=== PATIENT | male | born 1990 | race Two or more races ===

== ENCOUNTER 2023-05-01 10:04 | Outpatient (AMB) | payer OTHER, SELFPAY ==
--- NOTE | 2023-05-01 10:08 | MHC.PC.OV ---
Vital Signs 05/01/23 10:16 Height 5 ft 8 in Weight 148 lb BMI 22.5 BP 100/60 Blood Pressure Location Rt brachial Position Sitting Pulse 79 Pulse Source Pulse Oximeter Pulse Oximetry (%) 100 Oxygen Delivery Method Room Air Intake Visit Reasons: [employer]/req PE Intake Note: Pt is here today as a New Patient to [facility] care/ PE Allergies No Known Allergies Allergy (Verified 05/01/23 10:17) Tobacco use date assessed: 05/01/23 Dental Screening Dental Screen Date: 05/01/23 Did you have a dental visit in the last 12 months?: Yes Did you have a dental problem in the last 6 months where you did not have access to dental care?: Yes Was dental information given to patient?: Patient has dentist HPI HPI Comments History of Present Illness Details Patient is a 32-year-old male in today to establish care and have his annual physical exam. He has a chief complaint of increased anxiety since his father 4 years prior. He also states he would like an evaluation for ADHD. He has a past medical history significant for childhood asthma, and anxiety. He has no surgical history. Patient will meet with in office community mental health liaison. [facility], LAT[facility] Family History (Updated 05/01/23 @ 10:30 by JULIANE Krishnamurthy) Father Substance use disorder Mental health disorder ADHD Type 2 diabetes mellitus Social History Housing: House Patient Tobacco Use Status: Never used Tobacco e-Cigarette/Vaping Use: Currently Using service: No Current occupational status: employed Cognitive needs: No Hearing needs: No Vision needs: Yes Questionnaire PHQ-9 Over the last 2 weeks, how often have you been bothered by any of the following problems? 1. Little interest or pleasure in doing things: several days 2. Feeling down, depressed, or hopeless: several days 3. Trouble falling or staying asleep, or sleeping too much: not at all 4. Feeling tired or having little energy: several days 5. Poor appetite or overeating: several days 6. Feeling bad about yourself - or that you are a failure or have let yourself or your family down: several days 7. Trouble concentrating on things, such as reading the newspaper or watching television: nearly every day 8. Moving or speaking so slowly that other people could have noticed. Or the opposite - being so fidgety or restless that you have been moving around a lot more than usual: not at all 9. Thoughts that you would be better off or of hurting yourself in some way: several days Total score: 9 Source: Developed by Drs. Fredrick Tavera, Laurel Groves, Fidencio Martinez and colleagues, with an educational femi from [employer]. Thrive Questionnaire Date Thrive assessed: 05/01/23 I am a: Patient What is your living situation today?: I have a steady place to live Within the past 12 months, did the food you bought not last and you didn't have the money to get more?: Never true Within the past 12 months, did you worry whether your food would run out before you got money to buy more?: Never true Do you have trouble paying for medicines?: No Do you have trouble getting transportation to medical appointments?: No Do you have trouble paying your heating and electricity bill?: No Do you have trouble taking care of your child, family member or friend?: No Do you have trouble with day-to-day activities such as bathing, preparing meals, shopping, managing finances, etc.?: No Are you currently unemployed and looking for a job?: No Are you interested in more education?: No AUDIT C Alcohol Use Questionnaire (AUDIT-C) 1. How often do you have a drink containing alcohol?: Monthly or less 2. How many drinks containing alcohol do you have on a typical day when you are drinking?: 1 or 2 3. How often do you have six or more drinks on one occasion?: Never Total Score: 1 WILLIAM-7 AMB Questionnaire WILLIAM-7 Date WILLIAM - 7 assessed: 05/01/23 Source: Developed by Drs. Fredrick Tavera, Laurel Groves, Fidencio Martinez and colleagues, with an educational femi from [employer]. WILLIAM-7 Assessment Billing WILLIAM-7 Assessment Tool: pt declined-do not bill Review of Systems Const Details: Constitutional : No Weight loss, No Fever, No Chills, No Fatigue, No Malaise ENT/Mouth : No sore throat, No Rhinorrhea, No hearing difficulties. Eyes: No Eye Pain, No Swelling, No Redness Cardiovascular : No Chest Pain, No SOB, No Dyspnea on Exertion, No Orthopnea, No Edema, No Palpitations Respiratory : No Cough, No Sputum, No Wheezing Gastrointestinal : No Nausea, No Vomiting, No Diarrhea, No Constipation, No abdominal Pain, No Hematochezia, No Melena Genitourinary : No Dysuria, No Urinary Frequency, No Hematuria, Musculoskeletal : No joint pain, No Myalgias, No Joint Swelling Skin : No Skin Lesions, No rash Neuro : No Weakness, No Numbness, No Dizziness, No Headache Psych : Admits increased Anxiety/Panic, No Depression Heme/Lymph: No Bruising, No Bleeding,No Lymphadenopathy Endocrine : No Polyuria, No Polydipsia All other systems reviewed and are negative All systems reviewed & are unremarkable except as noted in HPI and below Physical exam (Primary Care) Vital Signs: Last Vital Signs Pulse 79 05/01/23 10:16 BP 100/60 05/01/23 10:16 Pulse Ox 100 05/01/23 10:16 Oxygen Delivery Method Room Air 05/01/23 10:16 Care Plan Goal for BP management: Patient's vital signs are stable BMI result Body Mass Index 22.5 Tobacco/Smoking Status: Tobacco use Status Tobacco use date assessed 05/01/23 05/01/23 10:08 Patient Tobacco Use Status Never used Tobacco 05/01/23 10:20 e-Cigarette/Vaping Use Currently Using 05/01/23 10:20 Const General: cooperative and no acute distress Orientation/consciousness: patient oriented x3 Limitations: no limitations HENMT Head: Yes normal to inspection and Yes normocephalic Ears: TM's normal bilaterally General nose exam: Normal external nose present and Normal septum present Face and sinus: Yes normal facial exam Mouth: Normal oral and palatal mucosa present Eyes Conjunctivae: conjunctivae normal Sclerae: sclerae normal Pupils: Equal, round and reactive pupils present EOM: EOMs intact bilaterally Direct Ophthalmoscopy: normal light reflex and no photophobia Neck Neck: Yes normal visual inspection, Yes full ROM and Yes no lymphadenopathy Thyroid: Thyroid normal Chest Chest palpation & inspection: normal inspection of the chest Resp Auscultation: clear to auscultation bilaterally Cardio Rate: regular rate Rhythm: regular rhythm Heart sounds: S1 normal heart sound present and S2 normal heart sound present Peripheral pulses: Peripheral pulses 2+ throughout GI Inspection: Yes normal to inspection Auscultation: normal bowel sounds General: Yes no CVA tenderness Back/Spine/Pelvis Back: no CVA tenderness Neuro General: patient oriented x3 and CN's II-XI intact bilaterally Cranial nerves: Yes Equal, round and reactive pupils present Motor exam (neuro): 5/5 motor strength present throughout Deep tendon reflexes (DTR's): Right patellar reflex intensity grade: 2+ and Left patellar reflex intensity grade: 2+ Extrem General: Yes normal to inspection and Yes full ROM Psych Affect: normal affect Attitude: cooperative Thought process: Normal thought process present Thought content: Normal thought content present Insight: Good insight present (Psych) Judgement: Good judgement present (Psych) Office Procedures Flu Questionnaire Does the patient have a severe egg allergy?: No Does the patient have severe life threatening allergies?: No Does the patient have a fever or illness today?: No Has the patient ever had Guillain-[place] Syndrome?: No Has the patient ever had any past reaction to a flu shot?: No Immunizations flu vacc [id number] 6mos up(PF) 60 mcg(15 mcgx4)/0.5 mL IM syringe Performing Provider: JULIANE Krishnamurthy Performing Location: [facility] Administered by: Lawanda Palmer CMA on 05/01/23 11:09 Dose Route Admin Location Dispensed Lot Number Expiration Date NDC Mangle Roller 0.5 mL IM Right Deltoid 0.5 mL [id number] 11/23/23 [id number] [employer] VIS Given Date VIS Provided VIS Publication Date 05/01/23 Single Vaccine 20 Eligibility Eligibility Date Funding Source Not [facility] Eligible 05/01/23 Private Results Reviewed Results Reviewed: Patient will get lab draw today. Assessment and Plan Assessment & Plan (1) Encounter for routine adult physical exam with abnormal findings: Comment: Will draw CMP, CBC, UA, lipid profile, vitamin-D, TSH, T4. Code(s): Z00.01 - Encounter for general adult medical examination with abnormal findings (2) Anxiety: Comment: Patient has been started on sertraline at today's visit. He has been educated to take the medication as prescribed. He will have a in office follow-up in 4 weeks. Patient is agreeable to this plan. Code(s): F41.9 - Anxiety disorder, unspecified (3) Attention and concentration deficit: Code(s): R41.840 - Attention and concentration deficit Plan: Patient meeting with in office community specialist to assist with process for evaluation of ADHD. Patient understands and is agreeable with this plan Plan Patient will have follow-up in 4 weeks to evaluate new medication and labs. Orders: Orders Comprehensive Met. Panel Today Z00.01 - Encounter for general adult medical examination with abnormal findings Lipid Panel Today Z00.01 - Encounter for general adult medical examination with abnormal findings Complete Blood Count Auto Diff Today Z00.01 - Encounter for general adult medical examination with abnormal findings TSH reflex Free T4 Today Z00.01 - Encounter for general adult medical examination with abnormal findings UA CC w/rflx Micro + Cult Today Z00.01 - Encounter for general adult medical examination with abnormal findings Vitamin D 25-OH (D2 and D3) Today Z00.01 - Encounter for general adult medical examination with abnormal findings Influenza [id number] Immunization Today Z23 - Encounter for immunization Medications: New sertraline Take half tablet for the first four days. Then 1 tablet daily. 50 mg PO DAILY 30 tabs 0RF Coding Level of Care Code New Pt Level 4 (07192) Diagnoses Encounter for routine adult physical exam with abnormal findings Z00.01 Anxiety F41.9 Attention and concentration deficit R41.840 Time Spent (min) 30
[2023-05-01 10:16] VITALS: BP 100/60; PULSE 79; O2SAT 100; BMI 22.5
== END 2023-05-01 11:15 | disposition home or self-care (01) ==
PROVIDERS: PCP Nurse Practitioner Family; Visit Provider Nurse Practitioner Primary Care
DX: Z23 Encounter for immunization (principal)
CPT/HCPCS: 90471; 90686; 99385

== ENCOUNTER 2023-05-01 11:15 | Outpatient (REF) | payer OTHER, SELFPAY ==
[2023-05-01 13:20] LABS: Appearance Urine Clear; Color Urine Dark Yellow; Glucose Urine UA Negative (Negative); Leukocyte Esterase Urine Trace (Negative); Nitrite Urine Negative (Negative); Specific Gravity - Urine >= 1.030 (1.005-1.025); UMIC TRIGGER UACC YES; Urine Blood Negative (Negative); Urine Ketones 15 mg/dL (Negative); Urine Protein 30 (1+) mg/dL (Neg-Trace)
[2023-05-01 13:21] LABS: MANUAL DIFF FLAG NO
[2023-05-01 13:28] LABS: Bacteria Urine None Seen (None Seen); Hyaline Casts Urine 0-2 /LPF (0-2); RBC Urine 0-2 /HPF (0-2); Squamous Epithelial Cell Urine 0-2 /HPF (0-2); WBC Urine 0-5 /HPF (0-5)
[2023-05-01 13:29] LABS: Eosinophils Absolute Auto 0.1 X10*3/uL (0.0-0.4); Eosinophils Percent Auto 2.4 % (0-4); Hematocrit 44.3 % (42.0-52.0); Hemoglobin 15.4 g/dl (14.0-18.0); Imm Gran Abs Auto 0.01 X10*3/uL (0.00-0.03); Imm Gran Pct Auto 0.2 % (0.0-0.4); Lymphocytes Absolute Auto 1.2 X10*3/uL (1.2-4.9); Lymphocytes Percent Auto 28.1 % (20-40); Mean Corpuscular HGB Conc 34.8 g/dl (31.0-36.0); Mean Corpuscular Hemoglobin 31.3 pg (27.0-33.0); Mean Platelet Volume 11.7 fL (9.4-12.4); Monocytes Absolute Auto 0.4 X10*3/uL (0.1-1.2); Monocytes Percent Auto 9.4 % (2-11); Neutrophils Absolute Auto 2.4 x10*3/uL (2.0-8.3); Neutrophils Percent Auto 58.9 % (45-73); Platelet Count 281 X10*3/uL (160-400); Red Blood Count 4.92 X10*6/uL (4.60-5.80); Red Cell Distribution Width 11.9 % (11.0-16.0); White Blood Count 4.1 X10*3/uL (4.8-10.8)
[2023-05-01 13:50] LABS: Alanine Aminotransferase 21 U/L (0-40); Albumin Level 4.7 g/dL (3.5-5.0); Anion Gap 12 (12-20); Aspartate Amino Transferase 24 U/L (5-37); Bilirubin Total 1.3 mg/dL (0.0-1.0); Blood Urea Nitrogen 12 mg/dL (9-16); Carbon Dioxide 31 mmol/L (22-29); Chloride 104 mmol/L (96-108); Cholesterol 175 mg/dL (<200); Estimated Glomerular Filt Rate > 60; Glucose Random 96 mg/dL (60-115); HDL Cholesterol 53 mg/dL (>40); Potassium 3.9 mmol/L (3.3-5.1); Sodium 143 mmol/L (135-145); Total Protein 7.8 g/dL (6.5-8.0); Triglycerides 56 mg/dL (<150)
[2023-05-01 13:51] LABS: Alkaline Phosphatase 94 U/L (39-117); LDL Cholesterol Calculated 111 mg/dL (<100)
[2023-05-01 14:08] LABS: TSH reflex Free T4 0.89 uIU/mL (0.32-4.0)
[2023-05-06 18:35] LABS: Vitamin D 25-OH, D2 <4 ng/mL; Vitamin D 25-OH, D3 26 ng/mL; Vitamin D 25-OH, Total 26 ng/mL (30-100)
== END 2023-05-01 11:16 | disposition home or self-care (01) ==
LOC: HO.HMGCLDS 11:15
PROVIDERS: PCP Nurse Practitioner Primary Care; Visit Provider Nurse Practitioner Primary Care
DX: Z00.01 Encounter for general adult medical examination with abnormal findings (principal)
CPT/HCPCS: 36415; 80053; 80061; 81001; 82306; 84443; 85025

== ENCOUNTER 2023-06-06 10:47 | Outpatient (AMB) | payer SELFPAY ==
[2023-06-06 10:49] VITALS: BP 110/70; PULSE 101; O2SAT 98; BMI 22.7
--- NOTE | 2023-06-06 10:49 | A.OFFPC_ITS ---
Vital Signs 06/06/23 10:49 Height 5 ft 8 in Weight 149 lb BMI 22.7 BP 110/70 Blood Pressure Location Rt brachial Position Sitting Pulse 101 H Pulse Source Pulse Oximeter Pulse Oximetry (%) 98 Intake Visit Reasons: one month fu Intake Note: pt is here for one month follow up regarding new medication Bpo Specialist Required: No Accompanied by: Self / Same As Patient Allergies No Known Allergies Allergy (Verified 06/06/23 10:49) Tobacco use date assessed: 06/06/23 Dental Screening Dental Screen Date: 06/06/23 Did you have a dental visit in the last 12 months?: Yes Did you have a dental problem in the last 6 months where you did not have access to dental care?: No Was dental information given to patient?: Patient has dentist HPI HPI Comments History of Present Illness Details Patient is a 32-year-old male here for a follow-up. He is here to meet with community health program coordinator for services in regard to ADHD evaluation. He is also here for evaluation of sertraline which was started 4 weeks prior. Patient states that he has not yet noticed effects of the medication, but understands that it usually takes 6-8 weeks for the medication to take effect. He states that he is still having anxiety with some days being worse than others. Sometimes this affects his ability to get sleep. Patient denies SI/HI. Patient also has a complaint of left ear pain, x7 days. Denies any trauma to the area. Denies auditory changes. Denies fever, numbness, chest pain, shortness a breath, nausea, vomiting, diarrhea. Patient states that it feels like he has an ear infection. 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 Denies any trauma to the area. The pain increases or decreases based on his activity and what hes doing at work. Denies any numbness or tingling, denies headache, chest pain, shortness a breath. PFSH Family History Father Substance use disorder Mental health disorder ADHD Type 2 diabetes mellitus Social History Housing: House Patient Tobacco Use Status: Never used Tobacco e-Cigarette/Vaping Use: Currently Using service: No Current occupational status: employed Cognitive needs: No Hearing needs: No Vision needs: Yes Questionnaire PHQ-9 Over the last 2 weeks, how often have you been bothered by any of the following problems? 1. Little interest or pleasure in doing things: several days 2. Feeling down, depressed, or hopeless: several days 3. Trouble falling or staying asleep, or sleeping too much: not at all 4. Feeling tired or having little energy: several days 5. Poor appetite or overeating: not at all 6. Feeling bad about yourself - or that you are a failure or have let yourself or your family down: several days 7. Trouble concentrating on things, such as reading the newspaper or watching television: nearly every day 8. Moving or speaking so slowly that other people could have noticed. Or the opposite - being so fidgety or restless that you have been moving around a lot more than usual: not at all 9. Thoughts that you would be better off or of hurting yourself in some way: not at all Total score: 7 Depression Screening Interpretation: Negative Depression Screening Done: Yes 72638 - PHQ-9 Billing: Yes Source: Developed by Drs. Fredrick Tavera, Laurel Groves, Fidencio Martinez and colleagues, with an educational efmi from [employer]. Thrive Questionnaire Date Thrive assessed: 06/06/23 I am a: Patient What is your living situation today?: I have a steady place to live Within the past 12 months, did the food you bought not last and you didn't have the money to get more?: Never true Within the past 12 months, did you worry whether your food would run out before you got money to buy more?: Never true Do you have trouble paying for medicines?: No Do you have trouble getting transportation to medical appointments?: No Do you have trouble paying your heating and electricity bill?: No Do you have trouble taking care of your child, family member or friend?: No Do you have trouble with day-to-day activities such as bathing, preparing meals, shopping, managing finances, etc.?: No Are you currently unemployed and looking for a job?: No Are you interested in more education?: No Please select the resources that you would like help with: None Currently or been in a relationship where the following occur: no concerns reported WILLIAM-7 AMB Questionnaire WILLIAM-7 Date WILLIAM - 7 assessed: 06/06/23 Feeling nervous, anxious, or on edge: 3 = Nearly every day Not being able to stop or control worryin = Several days Worrying too much about different things: 1 = Several days Trouble relaxin = Several days Being so restless that it is hard to sit still: 3 = Nearly every day Becoming easily annoyed or irritable: 3 = Nearly every day Feeling afraid as if something awful might happen: 0 = Not at all Total WILLIAM-7 score (0-4 normal; 5-9 mild; 10-14 moderate; 15-21 severe): 12 Source: Developed by Drs. Fredrick Tavera, Laurel Groves, Fidencio Martinez and colleagues, with an educational femi from [employer]. WILLIAM-7 Assessment Billing WILLIAM-7 Assessment Tool: WILLIAM-7 Assessment 42920 Review of Systems Const Details: Constitutional : No Weight loss, No Fever, No Chills, No Fatigue, No Malaise ENT/Mouth : No sore throat, Admits left ear pain. Eyes: No Eye Pain, No Swelling, No Redness Cardiovascular : No Chest Pain, No SOB, No Dyspnea on Exertion, No Orthopnea, No Edema, No Palpitations Respiratory : No Cough, No Sputum, No Wheezing Gastrointestinal : No Nausea, No Vomiting, No Diarrhea, No Constipation, No abdominal Pain, No Hematochezia, No Melena Genitourinary : No Dysuria, No Urinary Frequency, No Hematuria, Musculoskeletal : Admits upper back discomfort at times, in between my shoulderblades . Skin : No Skin Lesions, No rash Neuro : No Weakness, No Numbness, No Dizziness, No Headache Psych : Admits some Anxiety/Panic, No Depression. No SI/HI. Heme/Lymph: No Bruising, No Bleeding,No Lymphadenopathy Endocrine : No Polyuria, No Polydipsia All other systems reviewed and are negative Physical exam (Primary Care) Vital Signs: Last Vital Signs Pulse 101 H 06/06/23 10:49 BP 118/72 06/06/23 10:49 Pulse Ox 98 06/06/23 10:49 BMI result Body Mass Index 22.7 Tobacco/Smoking Status: Tobacco use Status Tobacco use date assessed 06/06/23 06/06/23 10:50 Patient Tobacco Use Status Never used Tobacco 06/06/23 10:50 e-Cigarette/Vaping Use Currently Using 06/06/23 10:50 PHQ-9: PHQ-9 Score PHQ-9: Total score 7 06/06/23 10:58 Depression Screening Interpretation: Negative Thrive Assessment: Date of Thrive Assessment Date Thrive assessed 06/06/23 06/06/23 10:58 Currently or been in a relationship where the following occur: no concerns reported Const Other: Appearance: Alert.? Oriented X3.? No acute distress.? Eyes: Pupils equal, round and reactive to light.? ENT: Pharynx normal.?Left TM intact, erythema and effusion. Right TM intact and pearly celeste. Neck: Normal inspection.? Neck supple.? CVS: Normal heart rate and rhythm.? Pulses normal.? Respiratory: No respiratory distress.? Breath sounds normal.? Extremities: No lower extremity edema.? No calf ttp. 5/5 strength to bilateral upper and lower extremities Back: No midline tenderness, no C-spine tenderness, full range of motion, no CVA tenderness bilaterally. Some paraspinal tenderness. Neuro: Oriented X 3.? No motor deficit.? No sensory deficit. CN 2-12 intact Assessment and Plan Assessment & Plan (1) Anxiety: Comment: Patient was started on Sertraline 50 mg x4 week prior to appointment. Patient has been instructed that this medication often takes 6-8 weeks to take effect. Patient states understanding. Code(s): F41.9 - Anxiety disorder, unspecified (2) Otitis media of left ear: Comment: Patient has otitis media of left ear. Will give Augmentin to be taken as prescribed. Patient has been educated on side effects of the medication. He has been educated on signs of worsening symptoms when to turn to the office or when to present to the ER for Code(s): H66.92 - Otitis media, unspecified, left ear Qualifiers: Otitis media type: unspecified Qualified Code(s): H66.92 - Otitis media, unspecified, left ear (3) Upper back pain: Comment: Patient has upper back discomfort likely muscular in nature. Will order x-ray to rule out. 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 Will give lidocaine patch, and refer to physical therapy if indicated Code(s): M54.9 - Dorsalgia, unspecified Plan: Take your medications as prescribed. If you were prescribed antibiotics today, it is important that you take your medication to their entirety, do not skip any doses, do not finish them early. Follow-up with your primary care provider this week. Return to the emergency department with new or worsening symptoms. Such as fevers, chills, chest pain, shortness of breath, nausea, vomiting, dizziness, headache, vision changes, lethargy In case of emergency call 911 Plan Patient to follow-up in 4 weeks. Orders: Orders Complete Blood Count Auto Diff Today Z79.899 - Other retirement (current) drug therapy Comprehensive Met. Panel Today Z79.899 - Other retirement (current) drug therapy XR cervical spine 2V Today M54.2 - Cervicalgia Medications: New amoxicillin-pot clavulanate 875-125 mg 1 tab PO Q12H 20 tabs 0RF lidocaine 4% (Salonpas (lidocaine)) 1 patch topical DAILY PRN 30 ea 0RF pain Coding Level of Care Code Est Pt Level 3 (67007) Diagnoses Anxiety F41.9 Left otitis media, unspecified otitis media type H66.92 Otitis media type: unspecified Upper back pain M54.9 Additional Codes WILLIAM-7 Assessment Billing - WILLIAM-7 Assessment Tool: WILLIAM-7 Assessment 16054 ([id number])
== END 2023-06-06 12:21 | disposition home or self-care (01) ==
PROVIDERS: PCP Nurse Practitioner Family; Visit Provider Nurse Practitioner Primary Care
DX: F41.9 Anxiety disorder, unspecified (principal); H66.92 Otitis media, unspecified, left ear; M54.9 Dorsalgia, unspecified
CPT/HCPCS: 99214

== ENCOUNTER 2023-06-06 11:30 | Outpatient (REF) | payer OTHER, SELFPAY ==
--- NOTE | ~2023-06-06 | XR_ITS ---
EXAMINATION: XR CERVICAL SPINE CLINICAL INFORMATION: Cervicalgia COMPARISON: None available. TECHNIQUE: 3 views of the cervical spine were obtained. FINDINGS: There is straightening of normal cervical lordosis. Vertebral bodies are maintained in height. Odontoid is intact, posterior elements are aligned and no prevertebral soft tissue swelling seen. Mild C6-C7 disc space narrowing. Lung apices are clear. Soft tissues are unremarkable. XR/XR cervical spine 2V IMPRESSION: Cervical lordotic straightening. Mild C6-C7 disc disease.
[2023-06-06 13:17] LABS: MANUAL DIFF FLAG NO
[2023-06-06 13:24] LABS: Basophils Percent Auto 0.8 % (0-2); Eosinophils Absolute Auto 0.1 X10*3/uL (0.0-0.4); Eosinophils Percent Auto 2.7 % (0-4); Hematocrit 43.3 % (42.0-52.0); Hemoglobin 14.9 g/dl (14.0-18.0); Imm Gran Abs Auto 0.02 X10*3/uL (0.00-0.03); Imm Gran Pct Auto 0.4 % (0.0-0.4); Lymphocytes Absolute Auto 1.2 X10*3/uL (1.2-4.9); Lymphocytes Percent Auto 23.4 % (20-40); Mean Corpuscular HGB Conc 34.4 g/dl (31.0-36.0); Mean Corpuscular Hemoglobin 31.3 pg (27.0-33.0); Mean Platelet Volume 11.4 fL (9.4-12.4); Monocytes Absolute Auto 0.5 X10*3/uL (0.1-1.2); Monocytes Percent Auto 9.3 % (2-11); Neutrophils Absolute Auto 3.3 x10*3/uL (2.0-8.3); Neutrophils Percent Auto 63.4 % (45-73); Platelet Count 270 X10*3/uL (160-400); Red Blood Count 4.76 X10*6/uL (4.60-5.80); Red Cell Distribution Width 11.9 % (11.0-16.0); White Blood Count 5.2 X10*3/uL (4.8-10.8)
[2023-06-06 14:33] LABS: Alanine Aminotransferase 22 U/L (0-40); Albumin Level 4.8 g/dL (3.5-5.0); Alkaline Phosphatase 86 U/L (39-117); Anion Gap 11 (12-20); Aspartate Amino Transferase 23 U/L (5-37); Bilirubin Total 0.9 mg/dL (0.0-1.0); Blood Urea Nitrogen 15 mg/dL (9-16); Calcium 9.9 mg/dL (8.4-10.2); Carbon Dioxide 29 mmol/L (22-29); Chloride 103 mmol/L (96-108); Estimated Glomerular Filt Rate > 60; Glucose Random 77 mg/dL (60-115); Potassium 4.1 mmol/L (3.3-5.1); Sodium 139 mmol/L (135-145); Total Protein 7.7 g/dL (6.5-8.0)
== END 2023-06-06 11:31 | disposition home or self-care (01) ==
LOC: HO.HMGCX 11:30
PROVIDERS: PCP Nurse Practitioner Primary Care; Visit Provider Nurse Practitioner Primary Care
DX: M54.2 Cervicalgia (principal); Z79.899 Other long term (current) drug therapy
CPT/HCPCS: 36415; 72040; 80053; 85025

== ENCOUNTER 2023-07-18 15:23 | Outpatient (AMB) | payer SELFPAY ==
[2023-07-18 15:28] VITALS: BP 120/78; PULSE 95; O2SAT 100; BMI 23.4
--- NOTE | 2023-07-18 15:28 | A.OFFPC_ITS ---
Vital Signs 07/18/23 15:28 Height 5 ft 8 in Weight 154 lb 2 oz BMI 23.4 BP 120/78 Blood Pressure Location Rt brachial Position Sitting Pulse 95 Pulse Source Pulse Oximeter Pulse Oximetry (%) 100 Oxygen Delivery Method Room Air Intake Visit Reasons: 6 week follow up Intake Note: pt is here for a 6 week follow up for anxiety Allergies No Known Allergies Allergy (Verified 07/18/23 16:05) Medication List - Last Reconciled 07/18/23 by JULIANE Krishnamurthy carbamide peroxide 6.5% (Debrox) 5 drps otic (ear) left DAILY 4 days cholecalciferol (vitamin D3) 50 mcg PO DAILY prednisone 20 mg PO BID sertraline 50 mg PO DAILY Tobacco use date assessed: 07/18/23 Dental Screening Dental Screen Date: 07/18/23 Did you have a dental visit in the last 12 months?: Yes Did you have a dental problem in the last 6 months where you did not have access to dental care?: No Was dental information given to patient?: Patient has dentist HPI HPI Comments History of Present Illness Details Patient is a 32-year-old male here for follow-up after starting sertraline 50 mg p.o. daily. Patient has been on this medication now 8 weeks, he states that is helped his depression symptoms. He states that he still having racing thoughts, and believes is due to his ADHD. He has been referred to ADHD testing center, and Psychiatry. No SI HI. Previous visit patient also had cervical x-ray which demonstrates straightening. Will refer to physical therapy. Patient is agreeable. PFSH Family History Father Substance use disorder Mental health disorder ADHD Type 2 diabetes mellitus Social History Housing: House Patient Tobacco Use Status: Never used Tobacco e-Cigarette/Vaping Use: Currently Using service: No Current occupational status: employed Cognitive needs: No Hearing needs: No Vision needs: Yes Questionnaire PHQ-9 Over the last 2 weeks, how often have you been bothered by any of the following problems? 1. Little interest or pleasure in doing things: several days 2. Feeling down, depressed, or hopeless: more than half the days 3. Trouble falling or staying asleep, or sleeping too much: more than half the days 4. Feeling tired or having little energy: several days 5. Poor appetite or overeating: not at all 6. Feeling bad about yourself - or that you are a failure or have let yourself or your family down: several days 7. Trouble concentrating on things, such as reading the newspaper or watching television: several days 8. Moving or speaking so slowly that other people could have noticed. Or the opposite - being so fidgety or restless that you have been moving around a lot more than usual: not at all 9. Thoughts that you would be better off or of hurting yourself in some way: not at all Total score: 8 Depression Screening Interpretation: Negative Depression Screening Done: Yes 72795 - PHQ-9 Billing: Yes Source: Developed by Drs. Fredrick Tavera, Laurel Groves, Fidencio Martinez and colleagues, with an educational femi from [employer]. Thrive Questionnaire Date Thrive assessed: 07/18/23 I am a: Patient What is your living situation today?: I have a steady place to live Within the past 12 months, did the food you bought not last and you didn't have the money to get more?: Never true Within the past 12 months, did you worry whether your food would run out before you got money to buy more?: Never true Do you have trouble paying for medicines?: No Do you have trouble getting transportation to medical appointments?: No Do you have trouble paying your heating and electricity bill?: No Do you have trouble taking care of your child, family member or friend?: No Do you have trouble with day-to-day activities such as bathing, preparing meals, shopping, managing finances, etc.?: No Are you currently unemployed and looking for a job?: No Are you interested in more education?: No THRIVE Score: 0 WILLIAM-7 AMB Questionnaire WILLIAM-7 Date WILLIAM - 7 assessed: 07/18/23 Feeling nervous, anxious, or on edge: 2 = More than half the days Not being able to stop or control worryin = More than half the days Worrying too much about different things: 2 = More than half the days Trouble relaxin = More than half the days Being so restless that it is hard to sit still: 2 = More than half the days Becoming easily annoyed or irritable: 2 = More than half the days Feeling afraid as if something awful might happen: 1 = Several days Total WILLIAM-7 score (0-4 normal; 5-9 mild; 10-14 moderate; 15-21 severe): 13 Source: Developed by Drs. Fredrick Tavera, Laurel Groves, Fidencio Martinez and colleagues, with an educational femi from [employer]. WILLIAM-7 Assessment Billing WILLIAM-7 Assessment Tool: WILLIAM-7 Assessment 45777 Review of Systems Const Details: Constitutional : No Weight loss, No Fever, No Chills, No Fatigue, No Malaise ENT/Mouth : No sore throat, No Rhinorrhea. Admits ear fullness. Cardiovascular : No Chest Pain, No SOB, No Dyspnea on Exertion, No Orthopnea, No Edema, No Palpitations Respiratory : No Cough, No Sputum, No Wheezing Musculoskeletal : Admits occasional cervical pain. Neuro : No Weakness, No Numbness, No Dizziness, No Headache Psych : No Anxiety/Panic, No Depression. No SI.HI. Admits some racing thoughts. All other systems reviewed and are negative Physical exam (Primary Care) Care Plan Goal for BP management: Vital signs reviewed are stable. Tobacco/Smoking Status: Tobacco use Status Tobacco use date assessed 06/06/23 07/18/23 15:28 Patient Tobacco Use Status Never used Tobacco 07/18/23 15:28 e-Cigarette/Vaping Use Currently Using 07/18/23 15:28 Depression Screening Interpretation: Negative Thrive Assessment: Date of Thrive Assessment Date Thrive assessed 06/06/23 07/18/23 15:28 Const Other: Appearance: Alert.? Oriented X3.? No acute distress.? Eyes: Pupils equal, round and reactive to light.? ENT: TM intact, effusion bilaterally. No erythema. CVS: Normal heart rate and rhythm.? Pulses normal.? Respiratory: No respiratory distress.? Breath sounds normal.? Back: No midline tenderness, no C-spine tenderness, full range of motion, no CVA tenderness bilaterally Neuro: Oriented X 3.? No motor deficit.? No sensory deficit. CN 2-12 intact Assessment and Plan Assessment & Plan (1) Acute effusion of left ear: Comment: He states that he has noticed pressure in his ears since he went on an airplane recently. Patient has effusion of TM bilaterally. Will give prednisone taken as directed. Code(s): H65.192 - Other acute nonsuppurative otitis media, left ear Plan: Take your medications as prescribed. If you were prescribed antibiotics today, it is important that you take your medication to their entirety, do not skip any doses, do not finish them early. Follow-up with your primary care provider this week. Return to the emergency department with new or worsening symptoms. Such as fevers, chills, chest pain, shortness of breath, nausea, vomiting, dizziness, headache, vision changes, lethargy In case of emergency call 911 (2) Upper back pain: Comment: Patient had x-ray which demonstrated cervical straightening. Will refer to PT. Code(s): M54.9 - Dorsalgia, unspecified (3) Depression: Comment: Patient states that his depressive symptoms have improved since starting sertraline. He will continue to take 50 mg p.o. daily. Patient has been educated on signs of worsening symptoms when to report to the office or when to present to the ED. Code(s): F32.A - Depression, unspecified Qualifiers: Depression Type: unspecified Qualified Code(s): F32.A - Depression, unspecified (4) ADHD: Comment: He has referral for ADHD testing center. Patient also has psychiatric referral. Code(s): F90.9 - Attention-deficit hyperactivity disorder, unspecified type Qualifiers: Attention deficit-hyperactivity disorder type: unspecified Qualified Code(s): F90.9 - Attention-deficit hyperactivity disorder, unspecified type Plan: Will follow-up with patient. Orders: Orders PT Evaluation and Treatment Today M54.9 - Dorsalgia, unspecified Medications: New carbamide peroxide 6.5% (Debrox) 5 drps otic (ear) left DAILY 15 mL 0RF 4 days prednisone 20 mg PO BID 10 tabs 0RF Coding Level of Care Code Est Pt Level 3 (26339) Diagnoses Acute effusion of left ear H65.192 Upper back pain M54.9 Depression, unspecified depression type F32.A Depression Type: unspecified Attention deficit hyperactivity disorder (ADHD), unspecified ADHD type F90.9 Attention deficit-hyperactivity disorder type: unspecified Additional Codes WILLIAM-7 Assessment Billing - WILLIAM-7 Assessment Tool: WILLIAM-7 Assessment 95604 ([id number]) Time Spent (min) 30
== END 2023-07-18 16:02 | disposition home or self-care (01) ==
PROVIDERS: PCP Nurse Practitioner Primary Care; Visit Provider Nurse Practitioner Primary Care
DX: H65.192 Other acute nonsuppurative otitis media, left ear (principal); M54.9 Dorsalgia, unspecified; F32.A Depression, unspecified; F90.9 Attention-deficit hyperactivity disorder, unspecified type
CPT/HCPCS: 99213

== ENCOUNTER 2023-10-02 15:00 | Outpatient (RCR) | payer SELFPAY ==
--- NOTE | 2023-08-21 15:10 | MHC.PT.EP ---
[facility] [place] Office [place] Office [place] Office [address] Florinda Trevino [address] [phone] F: [phone] F: [phone] F: [phone] F: [phone] Physical Therapy Plan of Care Date of Evaluation: 08/19/23 Date of Surgery: n/a Diagnosis: Dorsalgia, unspecified Upper back pain Assessment: Pt is a pleasant and motivated 32yo M who presents to PT with right upper back pain R>L. Pt presents to PT with current impairments in pain, decreased thoracic ROM, soft tissue restrictions, and impaired posture. He is limited functionally by prolonged sitting, carrying over the shoulder, bending, and twisting. He is an excellent candidate for skilled PT in order to address current impairments to facilitate return to PLOF. He is recommended to be seen 2x/week for 4 weeks and will be reassessed at that time Frequency and Duration: The patient will be seen 2x/week for 4 weeks Short Term Goals: Pt will be I with HEP to promote self management of symptoms Pt will improve B thoracic rotation by at least 25% B Pipe [employer] Goals: Pt will achieve full ROM all planes of thoracic spine with minimal to no discomfort Pt will tolerate prolonged sitting > 45 minutes with improved posture with minimal to no discomfort Pt will demonstrate ability to squat and brain picker object from the floor with proper mechanics and minimal to no discomfort Treatment Plan: Modalities to reduce pain, spasms and effusion. Manual therapy to restore motion and function. Therapeutic exercise to improve strength and flexibility. Neuromuscular re-education for posture and balance. Therapeutic activities to return to functional activities of daily living. Electronically signed by: Laina Sharp, PT, DPT Please sign and return to therapist. Thank you for your referral.
--- NOTE | 2023-10-07 15:48 | MHC.PT.DC ---
[facility] [place] Office [place] Office [place] Office [address] Florinda Trevino [address] [phone] F: [phone] F: [phone] F: [phone] F: [phone] Physical Therapy Discharge Report Diagnosis: Dorsalgia, unspecified Upper back pain Date of Surgery: n/a Date of Evaluation: 08/19/23 Date of Discharge: 10/07/23 Treatments to Date: 9 Cancellations to Date: No Shows to Date: Discharge Status: Patient Elected to Stop Discharge Summary: Pt was seen for PT from 08/19/23-10-02-23. He called today requesting to self D/C from PT and is feeling good From last PT note on 10/02/23 by RS: Bulmaro reports feeling much improvement with his back symptoms over the past couple of weeks. He feels ready for discharge this visit because he knows exercises to do to maintain his strength, mobility and good posture going forward. He shows objective improvement in his motion, strength, and posture. Electronically signed by: Laina Sharp, PT, DPT Please sign and return to therapist. Thank you for your referral.
== END 2023-10-07 15:48 | disposition home or self-care (01) ==
LOC: HO.PT 15:00
PROVIDERS: PCP Nurse Practitioner Primary Care; Visit Provider Nurse Practitioner Primary Care
DX: M54.9 Dorsalgia, unspecified (principal)
CPT/HCPCS: 97110; 97112; 97140; 97161; 97530

== ENCOUNTER 2024-05-18 13:09 | Outpatient (REF) | payer OTHER, SELFPAY ==
--- OUTSIDE RECORDS SUMMARY | 2024-05-18 14:28 | XMS_ITS | Continuity of Care Document ---
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 [address] [place], [address]. tel:[phone] [facility], [address] [place], [place], [id number] , [place] tel:[phone] [facility] Visit (chief complaint)Tda p vaccine (chief complaint)TB test (chief complaint)for m (chief complaint) Need for Tdap vaccinationEn counter for screening for respiratory tuberculosisE ncounter for completion of form with patient 0 Cait Aleman. [address] [place], [place], [id number], [place]. tel:[phone] OFFICE/OUTPA TIENT VISIT, EST [facility], [address] [place] [address], [id number] , [place] tel:[phone] [facility] Cough (chief complaint) Body mass index (BMI) 34.0-34.9, adultDietary counseling and surveillanceE xercise counselingAcu te upper respiratory infection 0 Jewel Grey. [address] [place], [place], [id number], [place]. tel:[phone] [facility], [address] [place] [address], [id number] , [place] tel:[phone] [facility] PPD Reading (chief complaint) No Information 8 Nursing Services. [address] [place], [address]. tel:[phone] ESTABLISHED PT- EXPANDED EXAM [facility], [address] [place], [place], [id number] , [place] tel:[phone] [facility] PPD (chief complaint) Body mass index (BMI) 33.0-33.9, adultEncounte r for screening for respiratory tuberculosis 8 Cait Aleman. [address] [place], [place], [id number], [place]. tel:[phone] [facility], [address] [place], [place], [id number] , [place] tel:[phone] [facility] PPD reading (chief complaint) No Information 7 Nursing Services. [address] [place] [address], [id number]. tel:[phone] ESTABLISHED PT- EXPANDED EXAM [facility], [place] [place], [id number] , [place] tel:[phone] [facility] Medical tb test (chief complaint) Body mass index (BMI) 33.0-33.9, adultEncounte r for screening for respiratory tuberculosis 7 No Information OFFICE/OUTPA TIENT VISIT, EST [facility], [address] [place] [address], [id number] , [place] tel:[phone] [facility] Medical Follow Up of asthma (chief complaint)col d symptoms (chief complaint) Body mass index (BMI) 33.0-33.9, adultUnspecif ied asthma, uncomplicated Acute URI 6 No Information PREV VISIT, EST, AGE 18-39 [facility], [address] [place] [address], [id number] , [place] tel:[phone] [facility] Preventive exam (chief complaint) Encntr for general adult medical exam w/o abnormal findingsObesi ty, unspecifiedFa jolly history of type 2 diabetes mellitus in motherFamily history of alcohol abuse and dependenceUns pecified asthma, uncomplicated 6 No Information [facility], [address] [place] [address], [id number] , [place] tel:[phone] [facility] PPD Reading (chief complaint) No Information 5 Nursing Services. [address] [place] [address], [id number]. tel:[phone] ESTABLISHED PT- EXPANDED EXAM [facility], [address] [place] [address], [id number] , [place] tel:[phone] [facility] PPD Test (chief complaint) ObesityPPD screening test 5 No Information OFFICE/OUTPA TIENT VISIT, NEW [facility], [address] [place], [place], [id number] , [place] tel:[phone] [facility] sore throat (chief complaint)ast hma prescription refill (chief complaint) AsthmaPharyng itis, Acute 3 Ramses Torrez. [address] [place], [place], [id number]. tel:[phone] [facility], [address] [place] [address], [id number] , [place] tel:[phone] [facility] No Information 2 No Information OFFICE/OUTPA TIENT VISIT, EST [facility], [address] [place] [address], [id number] , [place] tel:[phone] [facility] No Information 1 No Information ESTABLISHED PT- EXPANDED EXAM [facility], [address] [place] [address], [id number] , [place] tel:[phone] [facility] No Information 1 No Information [facility], [address] [place] [address], [id number] , [place] tel:[phone] [facility] No Information 1 Nursing Services. [address] [place], [address]. tel:[phone] PREV VISIT, EST, AGE 18-39 [facility], [address] [place] [address], [id number] , [place] tel:[phone] [facility] No Information 1 No Information [facility], [address] [place] [address], [id number] , tel:[phone] No Information 1 0 No Information Family [...] cified Payers Payer name Insurance type Covered green party ID Authoriza tion(s) IPA [employer] [place] [id number] [employer] [id number] Social History Type Description Quantity Date Captured [...] (2nd) due Goal HPV (1st) due Goal TB Assessment. Due on due Goal CPE. Due on due Goal Depression screening. Due on due Goal Influenza vaccine. Due on due Goal Dental (Prophy) exam. Due on due Goal Lipid panel. Due on due Goal Tdap due Goal Dental exam. Due on due Goal Influenza vaccine. Due on due Goal HPV (1st) due Goal Lipid panel. Due on due Goal CPE. Due on due Goal Tdap due Goal Depression screening. Due on due Goal Dental (Prophy) exam. Due on due Goal Dental exam. Due on due Goal HPV (1st) due Goal HPV (2nd) due Goal Depression screening. Due on due Goal Dental exam. Due on due Goal Influenza vaccine. Due on due Goal Lipid panel. Due on due Goal Tdap due Goal CPE. Due on due Goal Dental (Prophy) exam. Due on due Goal TB Assessment. Due on due Goal Dietary management education , guidance, and counseling completed Goal Lifestyle education regardin g diet completed Goal Lipid panel. Due on due Goal Tdap. Due on due Goal Depression screening. Due on due Goal CPE. Due on due Goal Influenza vaccine. Due on due Goal Dental exam. Due on due Goal Depression screening. Due on due Goal Influenza vaccine. Due on due Goal Dental exam. Due on due Goal CPE. Due on due Goal Lipid panel. Due on due Goal Tdap. Due on due Goal TB Assessment. Due on due Goal Dietary management education , guidance, and counseling completed Goal Depression screening. Due on due Goal CPE. Due on due Goal Dental exam. Due on due Goal Influenza vaccine. Due on due Goal Dental exam. Due on due Goal CPE. Due on due Goal Influenza vaccine. Due on due Goal Lifestyle education regardin g diet completed Goal Influenza vaccine. Due on due Goal CPE. Due on due Goal TB Assessment. Due on due Goal Dental exam. Due on 017 due Goal Influenza vaccine. Due on due Goal CPE. Due on due Goal TB Assessment. Due on due Goal Dietary management education , guidance, and counseling completed Goal H&P. Due on due Goal PPD (TST). Due on 5 due Goal Dental exam. Due on 015 due Goal Influenza vaccine. Due on due Goal CPE. Due on due Goal Depression screening. Due on due Goal HPV (3rd). Due on 1 due Goal H&P. Due on due Goal PPD (TST). Due on 5 due Goal Dental exam. Due on 015 due Goal Influenza vaccine. Due on due Goal CPE. Due on due Goal Depression screening. Due on due Goal HPV (1st) due Goal HPV (3rd). Due on 1 due Goal Dietary management education , guidance, and counseling completed Goal H&P. Due on due Goal PPD (TST). Due on 1 due Goal Dental exam. 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 Pt states his brother was diagnosed with [...] induration, no S/S of active TB, JG, TILE PRESSER PPD Pertinent negati ves include risk factors. [...] to Body mass index (BMI) 33.0-33.9, adult albuterol prn sugges t yearly flu vaccine. Related to Unspecified asthma, uncomplicated increase oral fluid intake. c/w cough syrup ( own) prnRTC if symptom not improve or get worse. Related to Acute URI Exercise promotion: stretching R elated to Body [...]
[2024-05-18 15:48] LABS: Hematocrit 43.5 % (42.0-52.0); Hemoglobin 15.4 g/dl (14.0-18.0); Mean Corpuscular HGB Conc 35.4 g/dl (31.0-36.0); Mean Corpuscular Hemoglobin 31.8 pg (27.0-33.0); Mean Corpuscular Volume 89.7 fL (80.0-98.0); Mean Platelet Volume 11.3 fL (9.4-12.4); Platelet Count 239 X10*3/uL (160-400); Red Blood Count 4.85 X10*6/uL (4.60-5.80)
[2024-05-18 16:07] LABS: Alanine Aminotransferase 29 U/L (0-40); Albumin Level 4.8 g/dL (3.5-5.0); Anion Gap 12 (12-20); Aspartate Amino Transferase 32 U/L (5-37); Bilirubin Direct 0.2 mg/dL (0.0-0.5); Bilirubin Total 0.6 mg/dL (0.0-1.0); Blood Urea Nitrogen 14 mg/dL (9-16); Calcium 9.6 mg/dL (8.4-10.2); Carbon Dioxide 28 mmol/L (22-29); Chloride 102 mmol/L (96-108); Estimated Glomerular Filt Rate > 60; Glucose Random 92 mg/dL (60-115); Potassium 3.4 mmol/L (3.3-5.1); Sodium 139 mmol/L (135-145); Total Protein 7.9 g/dL (6.5-8.0)
[2024-05-18 16:10] LABS: Alkaline Phosphatase 93 U/L (39-117)
[2024-05-18 17:01] LABS: Erythrocyte Sedimentation Rate 2 MM/HR (0-15)
== END 2024-05-18 13:10 | disposition home or self-care (01) ==
LOC: HO.HMGCLDS 13:09
PROVIDERS: PCP Internal Medicine; Visit Provider Internal Medicine
DX: R50.9 Fever, unspecified (principal)
CPT/HCPCS: 36415; 80048; 80076; 85027; 85652

== ENCOUNTER 2024-05-18 13:09 | Outpatient (AMB) | payer OTHER, SELFPAY ==
--- OUTSIDE RECORDS SUMMARY | 2024-05-18 13:10 | XMS_ITS | Continuity of Care Document ---
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 Patient-Telehealth Visi t Level 3 OFFICE/OUTPATIENT VISIT, EST PPD Reading ESTABLISHED PT- EXPANDED EXAM 8 TB INTRADERMAL TEST TB INTRADERMAL TEST PPD Reading ESTABLISHED PT- EXPANDED EXAM 7 TB INTRADERMAL TEST OFFICE/OUTPATIENT VISIT, EST URINE DIPSTICK PREV VISIT, EST, AGE 18-39 CBC W AUTO DIFFERENTIAL G.C CHLAMYDIA N.GONORRHOEAE, DNA, AMP PROB COMPREHEN METABOLIC PANEL URINE CULTURE/COLONY COUNT ASSAY OF GGT GLYCATED HEMOGLOBIN TEST LIPID PANEL HEPATIC FUNCTION PANEL HEPATITIS PANEL T4 Free ASSAY THYROID HIGHLY SENSITIVE 3RD GEN A URINALYSIS, AUTO W/SCOPE PPD Reading ESTABLISHED PT- EXPANDED EXAM 5 TB INTRADERMAL TEST TB INTRADERMAL TEST OFFICE/OUTPATIENT VISIT, NEW Other OFFICE/OUTPATIENT VISIT, EST MEASURE BLOOD OXYGEN LEVEL URINE DIPSTICK FLU VACCINE PURCHASED IMMUNIZATION ADMIN ESTABLISHED PT- EXPANDED EXAM 1 PPD Reading PREV VISIT, EST, AGE 18-39 TB INTRADERMAL TEST PURE TONE HEARING TEST, AIR VISUAL FIELD EXAMINATION(S) MEASURE AIRFLOW RESISTANCE HEMOGLOBIN URINE DIPSTICK H [place] VACC 3 DOSE IM COMPREHEN METABOLIC PANEL URINALYSIS, AUTO W/SCOPE DEHYDROEPIANDROSTERONE ASSAY OF LIPOPROTEIN DIRECT LDL ASSAY OF TRIGLYCERIDES COMPLETE CBC W/AUTO DIFF WBC ASSAY THYROID STIM HORMONE MENINGOCOCCAL VACCINE, SC HEP A VACC, PED/ADOL, 2 DOSE Advance Directives Directive Yes / No Effective Date File Name No Information Encounters Encounter Description Practice Location Reason(s) For Visit Diagnoses Date Provider Providers Copied on Encounter [facility], [address] [place], [place], [id number] , [place] tel:[phone] [facility] PPD Reading (chief complaint) No Information 0- 0 Nursing Services. [address] [place], [address]. tel:[phone] [facility], [address] [place], [place], [id number] , [place] tel:[phone] [facility] Tele[facility] Visit (chief complaint)Tda p vaccine (chief complaint)TB test (chief complaint)for m (chief complaint) Need for Tdap vaccinationEn counter for screening for respiratory tuberculosisE ncounter for completion of form with patient 0 Cait Aleman. [address] [place], [place], [id number], [place]. tel:[phone] OFFICE/OUTPA TIENT VISIT, EST [facility], [address] [place] [address], [id number] , [place] tel:[phone] [facility] Cough (chief complaint) Body mass index (BMI) 34.0-34.9, adultDietary counseling and surveillanceE xercise counselingAcu te upper respiratory infection 0 Jewel Grey. [address] [place], [place], [id number], [place]. tel:[phone] [facility], [address] [place] [address], [id number] , [place] tel:[phone] [facility] PPD Reading (chief complaint) No Information 8 Nursing Services. [address] [place], [address]. tel:[phone] ESTABLISHED PT- EXPANDED EXAM [facility], [address] [place], [place], [id number] , [place] tel:[phone] [facility] PPD (chief complaint) Body mass index (BMI) 33.0-33.9, adultEncounte r for screening for respiratory tuberculosis 8 Cait Aleman. [address] [place], [place], [id number], [place]. tel:[phone] [facility], [address] [place], [place], [id number] , [place] tel:[phone] [facility] PPD reading (chief complaint) No Information 7 Nursing Services. [address] [place] [address], [id number]. tel:[phone] ESTABLISHED PT- EXPANDED EXAM [facility], [address] [place], [id number] , [place] tel:[phone] [facility] tb test (chief complaint) Body mass index (BMI) 33.0-33.9, adultEncounte r for screening for respiratory tuberculosis 7 No Information OFFICE/OUTPA TIENT VISIT, EST [facility], [address] [place] [address], [id number] , [place] tel:[phone] [facility] Follow Up of asthma (chief complaint)col d symptoms (chief complaint) Body mass index (BMI) 33.0-33.9, adultUnspecif ied asthma, uncomplicated Acute URI 6 No Information PREV VISIT, EST, AGE 18-39 [facility], [address] [place] [address], [id number] , [place] tel:[phone] [facility] Preventive exam (chief complaint) Encntr for general adult medical exam w/o abnormal findingsObesi ty, unspecifiedFa jolly history of type 2 diabetes mellitus in motherFamily history of alcohol abuse and dependenceUns pecified asthma, uncomplicated 6 No Information [facility], [address] [place] [address], [id number] , [place] tel:[phone] [facility] PPD Reading (chief complaint) No Information 5 Nursing Services. [address] [place] [address], [address]. tel:[phone] ESTABLISHED PT- EXPANDED EXAM [facility], [address] [place] [address], [id number] , [place] tel:[phone] [facility] PPD Test (chief complaint) ObesityPPD screening test 5 No Information OFFICE/OUTPA TIENT VISIT, NEW [facility], [address] [place], [place], [id number] , [place] tel:[phone] [facility] sore throat (chief complaint)ast hma prescription refill (chief complaint) AsthmaPharyng itis, Acute 3 Ramses Torrez. [address] [place], [place], [id number]. tel:[phone] [facility], [address] [place] [address], [id number] , [place] tel:[phone] [facility] No Information 2 No Information OFFICE/OUTPA TIENT VISIT, EST [facility], [address] [place] [address], [id number] , [place] tel:[phone] [facility] No Information 1 No Information ESTABLISHED PT- EXPANDED EXAM [facility], [address] [place] [address], [id number] , [place] tel:[phone] [facility] No Information 1 No Information [facility], [address] [place] [address], [id number] , [place] tel:[phone] [facility] No Information 1 Nursing Services. [address] [place], [address]. tel:[phone] PREV VISIT, EST, AGE 18-39 [facility], [address] [place] [address], [id number] , [place] tel:[phone] [facility] No Information 1 No Information [facility], [address] [place] [address], [id number] , tel:[phone] No Information 1 0 No Information Family History Family Member Type Diagnosis Age At Onset Father Problem (finding) Diabetes mellitus Maternal grandmother Problem (finding) malignant neopl asm of ovary Mother Problem (finding) Diabetes mellitus Father Problem (finding) hypertension Immunizations Vaccine Date Status Comments Tdap administered Source: New Imm unization Record Meningococcal Conjugate administered Sour ce: Source Unspecified Hepatitis A administered Source: Source Unspecified Human Papillomavirus administered Source: Source Unspecified Tetanus Diphtheria administered Source: S ource Unspecified Human Papillomavirus administered Source: Source Unspecified Diphtheria Tetanus acellula r Pertussis administered Source: Source Unspe cified Polio (Inactivated) administered Source: Source Unspecified Measles Mumps Rubella administered Sour ce: Source Unspecified Haemophilus Influenzae type B (Hib) administered Source: Source Unspe cified Diptheria Tetanus whole ce ll Pertussis administered Source: Source Unspe cified Measles Mumps Rubella administered Sour ce: Source Unspecified Polio (Oral) administered Source: Source Unspecified Hepatitis B administered Source: Source Unspecified Haemophilus Influenzae type B (Hib) administered Source: Source Unspe cified Diptheria Tetanus whole ce ll Pertussis administered Source: Source Unspe cified Polio (Oral) administered Source: Source Unspecified Hepatitis B administered Source: Source Unspecified Haemophilus Influenzae type B (Hib) administered Source: Source Unspe cified Diptheria Tetanus whole ce ll Pertussis administered Source: Source Unspe cified Diptheria Tetanus whole ce ll Pertussis administered Source: Source Unspe cified Polio (Oral) administered Source: Source Unspecified Hepatitis B administered Source: Source Unspecified Haemophilus Influenzae type B (Hib) administered Source: Source Unspe cified Payers Payer name Insurance type Covered alliance party ID Authoriza tion(s) IPA MediCal [place] CI [id number] MediCal [id number] Social History Type Description Quantity Date Captured Comments Alcohol Use Details Unknown Caffeine Use Details Unknown Tobacco Use Status No Information Smoking Status No Information Sex Male Chief Complaint And Reason For Visit From encounter dated 11/13/2019 10:30'. PPD Reading (chief complaint). Description: 0x0mm induration, negative Reason For Referral Reason For Referral No Information Plan Of Treatment Date Type Action Status Goal HPV (2nd) due Goal HPV (1st) due Goal Dental exam. Due on due Goal Depression screening. Due on due Goal Dental (Prophy) exam. Due on due Goal CPE. Due on due Goal Influenza vaccine. Due on due Goal Tdap due Goal Lipid panel. Due on due Goal TB Assessment. Due on due Goal HPV (1st) due Goal Dental exam. Due on due Goal Tdap due Goal Lipid panel. Due on due Goal Dental (Prophy) exam. Due on due Goal Influenza vaccine. Due on due Goal Depression screening. Due on due Goal CPE. Due on due Goal HPV (1st) due Goal HPV (2nd) due Goal Dental (Prophy) exam. Due on due Goal Dental exam. Due on due Goal TB Assessment. Due on due Goal Influenza vaccine. Due on due Goal Lipid panel. Due on due Goal CPE. Due on due Goal Tdap due Goal Depression screening. Due on due Goal Dietary management education , guidance, and counseling completed Goal Lifestyle education regardin g diet completed Goal CPE. Due on due Goal Lipid panel. Due on due Goal Tdap. Due on due Goal Influenza vaccine. Due on due Goal Dental exam. Due on due Goal Depression screening. Due on due Goal Influenza vaccine. Due on due Goal TB Assessment. Due on due Goal Tdap. Due on due Goal Lipid panel. Due on due Goal Depression screening. Due on due Goal Dental exam. Due on due Goal CPE. Due on due Goal Dietary management education , guidance, and counseling completed Goal Influenza vaccine. Due on due Goal Dental exam. Due on due Goal CPE. Due on due Goal Depression screening. Due on due Goal CPE. Due on due Goal Influenza vaccine. Due on due Goal Dental exam. Due on due Goal Lifestyle education regardin g diet completed Goal Influenza vaccine. Due on due Goal CPE. Due on due Goal TB Assessment. Due on due Goal TB Assessment. Due on due Goal CPE. Due on due Goal Influenza vaccine. Due on due Goal Dental exam. Due on 017 due Goal Dietary management education , guidance, and counseling completed Goal Dental exam. Due on 015 due Goal HPV (3rd). Due on 1 due Goal CPE. Due on due Goal H&P. Due on due Goal Influenza vaccine. Due on due Goal PPD (TST). Due on 5 due Goal Depression screening. Due on due Goal HPV (3rd). Due on 1 due Goal CPE. Due on due Goal PPD (TST). Due on 5 due Goal HPV (1st) due Goal Depression screening. Due on due Goal Dental exam. Due on 015 due Goal Influenza vaccine. Due on due Goal H&P. Due on due Goal Dietary management education , guidance, and counseling completed Goal Dental exam. Due on 013 due Goal H&P. Due on due Goal PPD (TST). Due on 1 due History Of Present Illness Encounter Date Complaint History Of Prese nt Illness PPD Reading 0x0mm induration , negative Telehealth Visit Telehealth per health administration. Pt gives consent to have the appointment over the phone. Pt denies being in contact with anyone who has tested positive for COVID-19. Pt denies cough, fever, or sob. AQ/MA TB test for school form PATIENT INST RUCTION TO COME TO FOR VACCINES/TB TEST AND FOR BRIEF EXAM BY PROVIDER. Tdap vaccine for school Cough Onset: 2 days ag o. Severity: moderate. The patient describes the cough as dry. It occurs persistently. The problem has improved. Associated symptoms include chills, cough and nasal congestion. Cough (comments) 28 yo M h/o ast hma, presents with flu-like symptoms x 1 day. 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 Pt states his brother was diagnosed with influenza. Pt is worried and want to be evaluated so he is clear to attend school clinical tomorrow. Pt reports mild dry cough, runny nose, throat discomfort. Denies body aches/fever/chills/ barillas/dz/n/v. pt has been using tylenol prn at home, cough drops, zinc, to help with his sx. Pt claims had CPE and blood work at another clinic. all normal. 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 PPD given @9:35AM PPD reading tb test Follow Up of asthma The initial visit date was 05/17/2016. Context: seasonal. Aggravating factors include change in weather. Symptom relief is noted with nebulized medication only. Associated symptoms include awakening with cough. Pertinent negatives include awakening with dyspnea, hemoptysis, irregular heartbeat/palpitations, pleuritic pain and wheezing. Additional information: pt states needs more medication refills. use albuterol only with URI symptom. cold symptoms The patient desc ribes the cough as hacking and productive (of green sputum). Associated symptoms include cough, fever, nasal congestion, rhinitis, rhinorrhea and sore throat. Pertinent negatives include wheezing. The patient has a history of asthma. The patient does not have a history of allergies. Additional information: had Flu shot. Preventive exam (comments) Grad [employer]. 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 [employer] BMI=35. W=227. Gained 35lb in 4y. Lost 10.lb recently. Excercise a lot.Dad 46yo DM [at 30yo] +HTN+Neuropathy + Recovering ETOH. Mom 43yo DM for 20y + neuropathy + CKD HD soon.2 bro 21 obese + 14. Preventive exam Men's preventive visit. Patient is on a high fat diet. Marital status: single. PPD Reading 0x0mm induration , NEG PPD Test Functional Status Date Functional Assessmen t No Information Instructions Date Instruction Additional Infor evan -continue using Tyle nol and ibuprofen he has at home for pain control, cough drops. Instructed pt to get plenty of rest, Increase fluid intake, warm teas with honey/citrus, soups. Gargling with warm salt waterFrequent hand washPt verbalized understanding.RTC if sx worsens or not improving.ok to attend clinical tomorrow note provided to pt Related to Acute upper respiratory infection Dietary management e ducation, guidance, and counseling Related to Body mass index (BMI) 34.0-34.9, adult Lifestyle education regarding di et Related to Dietary counseling and surveillance Giving encouragement to exercise Related to Exercise counseling Giving encouragement to exercise Related to Body mass index (BMI) 33.0-33.9, adult Dietary management e ducation, guidance, and counseling Related to Body mass index (BMI) 33.0-33.9, adult -PPD to be placed to day, return to clinic in 48-72hrs for read Related to Encounter for screening for respiratory tuberculosis pt plan as discussed Related to Body mass index (BMI) 33.0-33.9, adult Giving encouragement to exercise Related to Body mass index (BMI) 33.0-33.9, adult Lifestyle education regarding di et Related to Body mass index (BMI) 33.0-33.9, adult increase oral fluid intake. c/w cough syrup ( own) prnRTC if symptom not improve or get worse. Related to Acute URI albuterol prn sugges t yearly flu vaccine. Related to Unspecified asthma, uncomplicated Exercise promotion: stretching R elated to Body mass index (BMI) 33.0-33.9, adult Dietary needs education Related to Body mass index (BMI) 33.0-33.9, adult Will be better if lo ses the 80.lb excess. Related to Unspecified asthma, uncomplicated BMI=34 severe obesit y for his age. Healthy lifestyle. Needs strict discipline to beat the DM genes from his parents. Related to Encntr for general adult medical exam w/o abnormal findings Giving encouragement to exercise Related to Obesity, unspecified Dietary management e ducation, guidance, and counseling Related to Obesity, unspecified Giving encouragement to exercise Related to Obesity, unspecified Dietary management e ducation, guidance, and counseling Related to Obesity, unspecified Wellness Education Related to PP D screening test TB test Related to PPD s creening test Wellness Education Related to PP D screening test TB test Related to PPD s creening test A healthy Lifestyle education Re lated to PPD screening test Assessments Type Assessment Date No Information Patient Care Teams Name Effective Dates (start - stop) Status Members No Information
--- NOTE | 2024-05-18 13:52 | AM.OFFWIN_ITS ---
Intake Vital Signs 05/18/24 13:53 Weight 151 lb BP 118/78 Blood Pressure Location Rt brachial Position Sitting Pulse 92 Pulse Source Pulse Oximeter Temp 99.3 F Temp Source Oral Pulse Oximetry (%) 98 Oxygen Delivery Method Room Air Intake Visit Reasons: EP Mouth pain Intake Note: Patient here for mouth pain that he has been dealing with for about 1 month. Patient Tobacco Use Status: Never used Tobacco Allergies No Known Allergies Allergy (Verified 05/18/24 14:30) Medication List - Last Reconciled 05/18/24 by Edilson Bermudez MD cholecalciferol (vitamin D3) 50 mcg PO DAILY sertraline 50 mg PO DAILY Do you need a note to return to daycare/school/sports/work: No HPI HPI Comments History of Present Illness Details 33 yr old male presents to the office fo r a sick visit. Patient reports he had thrush and was seen at urgent care clinics elsewhere on four seperate occasions. He was treatment with mouth wash and oral pills. Today he reports symptoms of chills and a low grade fever. PFSH Family History Father Substance use disorder Mental health disorder ADHD Type 2 diabetes mellitus Social History Housing: House Patient Tobacco Use Status: Never used Tobacco e-Cigarette/Vaping Use: Currently Using service: No Current occupational status: employed Cognitive needs: No Hearing needs: No Vision needs: Yes Physical Exam Vital Signs: Last Vital Signs Temp 99.3 F 05/18/24 13:53 Pulse 92 05/18/24 13:53 BP 118/78 05/18/24 13:53 Pulse Ox 98 05/18/24 13:53 Oxygen Delivery Method Room Air 05/18/24 13:53 Const General: cooperative and healthy appearing Nutritional Appearance: well nourished Orientation/consciousness: patient oriented x3 Limitations: no limitations HEENT Head: Yes normal to inspection Eyes General: appearance normal, both eyes and all related structures Neck Neck: Yes normal visual inspection Chest Chest palpation & inspection: normal palpation of entire chest wall Resp Effort & Inspection: normal respiratory effort Neuro General: patient oriented x3 Assessment & Plan Assessment & Plan (1) Febrile illness: Code(s): R50.9 - Fever, unspecified Plan: No evidence of thrush. Reassurance. Blood work ordered. Will call with the results Orders: Orders Complete Blood Count no Diff Today R50.9 - Fever, unspecified Basic Metabolic Panel Today R50.9 - Fever, unspecified Liver Panel Today R50.9 - Fever, unspecified Erythrocyte Sedimentation Rate Today R50.9 - Fever, unspecified Coding Level of Care Code Est Pt Level 3 (84072) Diagnoses Febrile illness R50.9
[2024-05-18 13:53] VITALS: BP 118/78; PULSE 92; TEMP 37.4; O2SAT 98
== END 2024-05-18 14:40 | disposition home or self-care (01) ==
PROVIDERS: Visit Provider Internal Medicine
DX: R50.9 Fever, unspecified (principal)